=== PATIENT | male | born 1945 | race Caucasian/White ===

== ENCOUNTER 2017-10-06 15:34 | Emergency (ER) | payer MEDICARE, MEDICAID ==
[~2017-10-06] VITALS: Ht 167.6 cm; Wt 68.0 kg
[2017-10-06] MEDS ORDERED: HUMALOG 75/255 UNIT1 SUBQ (15:45)
[2017-10-06] MEDS ORDERED: LEVEMIR100 UNIT/1 SUBQ (15:45)
[2017-10-06] MEDS ORDERED: UNOBMED (15:50)
--- NOTE | 2017-10-06 16:02 | Emergency Room Report ---
History of Present Illness General Chief Complaint: General Complaint Source: Patient Present Illness HPI 72-year-old male, history of diabetes, presenting with unsteady gait. Patient states that yesterday he was feeling "wobbly", states that he went to walk, walk about half a mile, tripped over his dog leash and fell. He did not hit his head or loose consciousness. Went to the urgent care after that and ultimately went home. Patient states he woke up this morning again still feeling unsteady and his feet. Denies any headache, neck pain, blurry vision, numbness tingling. States that he is in his usual state of health with no fever chills chest pain shortness of breath. No urinary or GI complaints Patient History Past Medical History: see triage record Past Surgical History: none Pertinent Family History: none Reviewed Nursing Documentation: PMH: Agreed, PSxH: Agreed Nursing Documentation-PMH Hx Diabetes: Yes - DM2 Review of Systems All Other Systems: negative except mentioned in HPI Physical Exam Vital Signs Date Time Temp Pulse Resp B/P (MAP) Pulse Ox O2 Delivery O2 Flow Rate FiO2 10/06/17 15:38 97.9 69 16 195/67 96 Room Air Sp02 EP Interpretation: reviewed, normal General Appearance: alert, GCS 15, non-toxic, mild distress Head: normocephalic, atraumatic Eyes: bilateral eye normal inspection, bilateral eye PERRL, bilateral eye EOMI ENT: normal ENT inspection, normal pharynx, normal voice, moist mucus membranes Neck: normal inspection, full range of motion, supple Respiratory: normal inspection, lungs clear, normal breath sounds, no respiratory distress, no retraction, no wheezing, speaking full sentences, chest symmetrical Cardiovascular #1: normal inspection, regular rate, rhythm, no edema, normal capillary refill Cardiovascular #2: 2+ radial (R), 2+ radial (L) Gastrointestinal: normal inspection, non tender, soft, non-distended, no guarding Genitourinary: no CVA tenderness Musculoskeletal: normal inspection, back normal, normal range of motion, non- tender Neurologic: alert, oriented x3, responsive, microelectronics engineer III-XII nml as tested, motor strength/tone normal, sensory intact, speech normal, other - No motor weakness, strength is 5 out of 5 all 4 extremities, sensation is intact, [id number] is normal, no dysmetria. When walking the patient with slight wide based gait Psychiatric: normal inspection, judgement/insight normal, memory normal Skin: normal inspection, normal color, no rash, warm/dry, well hydrated, normal turgor Medical Decision Making Diagnostic Impression: Primary Impression: History of unsteady gait ER Course 72-year-old male, with unsteady gait for 2 days DDX: Rule out dehydration hypovolemia electrolyte disturbance Infectious Intracranial: Normal pressure hydrocephalus versus CVA Plan: Obtain labs, ua, EKG, CXR CT head ER course: Patient has been monitored during ED stay, HD stable CT head neg he has been ambulatory around ED, no difficulties I initially wanted to admit patient for unsteady gait, however patient states that he feels much better, he has been ambulating to and from the bathroom on his own without difficulty. He lives at home with his daughter and has people at home with him. I spoke to his PMD Dr. Taveras. Informed him that patient' s neurological exam is normal. CT head is normal. Lites are normal. We'll DC home with followup in his office this week Disposition: Patient is to be DC to home Please note that this Emergency Department Report was dictated using [employer] mechanic technology software, occasionally this can lead to erroneous entry secondary to interpretation by the dictation equipment. EKG Diagnostic Results EP Interpretation: Yes Rate: normal Rhythm: NSR ST Segments: No acute changes ASA given to patient: No Rhythm Strip EP Interpretation: Yes Rate: 70 Rhythm: NSR, no PVCs, no ectopy Chest X-ray CXR: Ordered: Yes 1 view Indication: Altered mental status EP interpretation: Yes Interpretation: No consolidation, no effusion, no PTX, no acute cardiopulmonary disease Impression: No acute disease Electronically signed by Zoe Garcia MD Laboratory Tests Test 10/06/17 16:47 10/06/17 17:30 White Blood Count 6.4 K/UL (4.8-10.8) Red Blood Count 4.31 M/UL (4.70-6.10) L Hemoglobin 11.3 G/DL (14.2-18.0) L Hematocrit 36.3 % (42.0-52.0) L Mean Corpuscular Volume 84 FL (80-99) Mean Corpuscular Hemoglobin 26.2 PG (27.0-31.0) L Mean Corpuscular Hemoglobin Concent 31.1 G/DL (32.0-36.0) L Red Cell Distribution Width 11.6 % (11.6-14.8) Platelet Count 153 K/UL (150-450) Mean Platelet Volume 7.3 FL (6.5-10.1) Neutrophils (%) (Auto) 66.9 % (45.0-75.0) Lymphocytes (%) (Auto) 18.5 % (20.0-45.0) L Monocytes (%) (Auto) 11.5 % (1.0-10.0) H Eosinophils (%) (Auto) 1.6 % (0.0-3.0) Basophils (%) (Auto) 1.5 % (0.0-2.0) Sodium Level 143 MMOL/L (136-145) Potassium Level 3.7 MMOL/L (3.5-5.1) Chloride Level 107 MMOL/L (98-107) Carbon Dioxide Level 26 MMOL/L (21-32) Anion Gap 10 mmol/L (5-15) Blood Urea Nitrogen 30 mg/dL (7-18) H Creatinine 1.3 MG/DL (0.55-1.30) Estimate Glomerular Filtration Rate mL/min (>60) Glucose Level 97 MG/DL (74-106) Calcium Level 7.9 MG/DL (8.5-10.1) L Total Bilirubin 0.5 MG/DL (0.2-1.0) Aspartate Amino Transferase (AST) 20 U/L (15-37) Alanine Aminotransferase (ALT) 24 U/L (12-78) Alkaline Phosphatase 90 U/L (46-116) Pro-B-Type Natriuretic Peptide 112 pg/mL (0-125) Total Protein 6.8 G/DL (6.4-8.2) Albumin 3.5 G/DL (3.4-5.0) Globulin 3.3 g/dL Albumin/Globulin Ratio 1.1 (1.0-2.7) Urine Color Joseline Urine Appearance Slightly cloudy Urine pH 5 (4.5-8.0) Urine Specific [place] 1.025 (1.005-1.035) Urine Protein 3+ (NEGATIVE) H Urine Glucose (UA) 2+ (NEGATIVE) H Urine Ketones 2+ (NEGATIVE) H Urine Occult Blood 3+ (NEGATIVE) H Urine Nitrite Negative (NEGATIVE) Urine Bilirubin Negative (NEGATIVE) Urine Ictotest Pending Urine Urobilinogen Normal MG/DL (0.0-1.0) Urine Leukocyte Esterase Negative (NEGATIVE) Urine RBC Pending Urine WBC Pending Urine Squamous Epithelial Cells Pending Urine Bacteria Pending CT/MRI/US Diagnostic Results CT/MRI/US Diagnostic Results : Imaging Test Ordered: CT Head Impression CT HEAD: Comparison 11/27/2008 No intracranial hemorrhage, mass effect or CT evidence of acute infarct The ventricles are prominent out of proportion to the sulci may represent central volume loss or NPH No midline shift The visualized paranasal sinuses, mastoid and orbits are within limits Last Vital Signs Date Time Temp Pulse Resp B/P (MAP) Pulse Ox O2 Delivery O2 Flow Rate FiO2 10/06/17 15:38 97.9 69 16 195/67 96 Room Air Disposition: HOME, SELF-CARE Condition: Improved Zoe Garcia M.D. Oct 06, 2017 16:02
[2017-10-06 16:10] VITALS: BP 195/67
[2017-10-06 16:57] VITALS: BP 171/71
[2017-10-06 16:59] LABS: BASOPHILS % (AUTO) 1.5 % (0.0-2.0); EOSINOPHILS % (AUTO) 1.6 % (0.0-3.0); HEMATOCRIT 36.3 % (42.0-52.0); HEMOGLOBIN 11.3 G/DL (14.2-18.0); LYMPHOCYTES % (AUTO) 18.5 % (20.0-45.0); MEAN CORPUSCULAR VOLUME 84 FL (80-99); MONOCYTES % (AUTO) 11.5 % (1.0-10.0); NEUTROPHILS % (AUTO) 66.9 % (45.0-75.0); PLATELET COUNT 153 K/UL (150-450); RED BLOOD COUNT 4.31 M/UL (4.70-6.10); RED CELL DISTRIBUTION WIDTH 11.6 % (11.6-14.8); WHITE BLOOD COUNT 6.4 K/UL (4.8-10.8)
[2017-10-06 17:23] LABS: ANION GAP 10 mmol/L (5-15); BLOOD UREA NITROGEN 30 mg/dL (7-18); CALCIUM 7.9 MG/DL (8.5-10.1); CARBON DIOXIDE 26 MMOL/L (21-32); CHLORIDE 107 MMOL/L (98-107); CREATININE 1.3 MG/DL (0.55-1.30); POTASSIUM 3.7 MMOL/L (3.5-5.1); SODIUM 143 MMOL/L (136-145)
[2017-10-06 17:35] LABS: ALANINE AMINOTRANSFERASE 24 U/L (12-78); ALBUMIN 3.5 G/DL (3.4-5.0); ALBUMIN/GLOBULIN RATIO 1.1 (1.0-2.7); ALKALINE PHOSPHATASE 90 U/L (46-116); ASPARTATE AMINO TRANSFERASE 20 U/L (15-37); BILIRUBIN,TOTAL 0.5 MG/DL (0.2-1.0)
[2017-10-06 18:03] LABS: APPEARANCE,URINE SLIGHTLY CLOUDY; BILIRUBIN, URINE NEGATIVE (NEGATIVE); COLOR,URINE AMBER; GLUCOSE, URINE (UA) 2+ (NEGATIVE); KETONES,URINE 2+ (NEGATIVE); LEUKOCYTE ESTERASE ,URINE NEGATIVE (NEGATIVE); NITRITE,URINE NEGATIVE (NEGATIVE); PH,URINE 5 (4.5-8.0); PROTEIN,URINE 3+ (NEGATIVE); UROBILINOGEN,URINE NORMAL MG/DL (0.0-1.0)
[2017-10-06 18:06] VITALS: BP 150/68
--- NOTE | 2017-10-07 21:47 | Diagnostic Imaging Report ---
Indication: Headache Technique: Contiguous 5 mm thick transaxial imaging of the head obtained in a Siemens Sensation [address] scanner. Soft tissue and bone windows generated. Automatic Exposure Control was utilized. Total Dose length Product (DLP): 1417.[address] Dose Index Volume (CTDIvol): 70.38 mGy Comparison: 11/27/2008 Findings: There is mild prominence of the ventricles, basal cisterns, and cerebral sulci consistent with atrophy. Mild, nonspecific, white matter hypoattenuation is noted throughout the brain consistent with chronic small vessel disease. There is no midline shift, edema, acute hemorrhage, mass effect, or abnormal extra-axial fluid collections. Bones and extra osseous soft tissues are unremarkable. Impression: No acute intracranial bleed, mass effect or edema. Mild atrophy of the brain. Nonspecific white matter hypoattenuation probably due to chronic small vessel disease. No interval change appreciated [facility] has communicated the preliminary results to the Emergency Department. Their findings are largely concordant with this report. The CT scanner at [facility] is accredited by the [employer] and the scans are performed using dose optimization techniques as appropriate to a performed exam including Automatic Exposure control.
--- NOTE | 2017-10-07 21:48 | Diagnostic Imaging Report ---
Indication: Dyspnea Comparison: 11/03/2010 A single view chest radiograph was obtained. Findings: Cardiomediastinal appearance is within normal limits for age. Pulmonary vascularity is appropriate. The diaphragmatic contour is smooth and costophrenic angles are sharp. No pleural effusions are identified. The bones are unremarkable. Impression: No acute findings
[2017-10-28 19:40] VITALS: BP 150/68
== END 2017-10-06 19:40 | disposition home or self-care (01) ==
LOC: EMR 15:59
DX: R26.81 Unsteadiness on feet (principal); R51 Headache; E11.9 Type 2 diabetes mellitus without complications; G31.9 Degenerative disease of nervous system, unspecified
CPT/HCPCS: 36415; 70450; 71045; 80053; 81003; 82962; 83880; 85025; 93005; 99284

== ENCOUNTER 2019-07-10 13:48 | Emergency (ER) | payer MEDICAID, MEDICARE ==
[~2019-07-10] VITALS: Ht 170.2 cm; Wt 72.6 kg
[~2019-07-10 13:48] MED LIST: HUMALOG 75/255 UNIT1 SUBQ; LEVEMIR100 UNIT/1 SUBQ; UNOBMED
[2019-07-10] MEDS ORDERED: ASPIR 8181 MG ORAL (14:05)
--- NOTE | 2019-07-10 14:19 | Emergency Room Report ---
History of Present Illness General Chief Complaint: Vomiting Source: Patient Present Illness HPI Disclaimer: Please note that this report is being documented using DRAGON technology. This can lead to erroneous entry secondary to incorrect interpretation by the dictating instrument. HPI: 73-year-old male with a history of diabetes, hypertension, hyperlipidemia presents for evaluation of vomiting. Symptoms began last night. He was in his usual state of health until approximately 8 PM when he began to have several episodes of nonbilious emesis. He reports possible coffee grounds but does not note any gross hematemesis, hemoptysis or kamryn coffee grounds in his vomitus. He denies abdominal pain aside from when he is in the active vomiting. Otherwise reports intermittent nausea and has not been able to hold down any solids or liquids since 8 PM last night. He denies any diarrhea but reports fatigue. Denies fevers or chills. Denies dysuria or hematuria or flank pain. Otherwise denies chest pain, shortness of breath, URI symptoms or rash. No known sick contacts. PMH: Diabetes, hypertension, hyperlipidemia PSH: Denies Allergies: Denies Social Hx: One drink daily, denies smoking, denies drugs Allergies: Coded Allergies: No Known Allergies (Unverified , 07/10/19) Nursing Documentation-PMH Past Medical History: No History, Except For Hx Diabetes: Yes Review of Systems All Other Systems: negative except mentioned in HPI Physical Exam Vital Signs Date Time Temp Pulse Resp B/P (MAP) Pulse Ox O2 Delivery O2 Flow Rate FiO2 07/10/19 13:55 97.7 82 18 131/66 (87) 95 Room Air General: Awake and alert, no acute distress HEENT: NC/AT. EOMI. PERRLA. Anicteric sclera. Dry mucous membranes Cardiovascular: RRR. S1 and S2 normal. No murmur appreciated. Capillary refill approximately 2 seconds Resp: Normal work of breathing. No cough, wheezing or crackles appreciated Abdomen: Abdomen is soft, nondistended. Nontender, no rebound, negative Ye' s, no masses Skin: Intact. No abrasions, laceration or rash over the exposed skin MSK: Normal tone and bulk. Moving all extremities. No obvious deformity. Neuro: Awake and alert. Mentating appropriately. Medical Decision Making Diagnostic Impression: Primary Impression: Vomiting Additional Impressions: Dehydration KAILYN (acute kidney injury) ER Course Is a 73-year-old male presenting for evaluation of persistent vomiting and signs of dehydration. Likely, this is a gastritis, gastroenteritis, viral syndrome though pancreatitis, cholecystitis, appendicitis, urinary tract infection, pyelonephritis or obstruction are also possible therefore less likely. Will provide IV fluids, check basic labs including a acetone level given his diabetes history. We will also provide antiemetics but he does not require pain medication at this time. There was concern over possible confusion of the patient is A&O x3, has good recall and insight into his medical condition and recent history. Laboratory Tests Test 07/10/19 15:10 07/10/19 19:00 White Blood Count 9.2 K/UL (4.8-10.8) Red Blood Count 4.99 M/UL (4.70-6.10) Hemoglobin 13.8 G/DL (14.2-18.0) L Hematocrit 41.9 % (42.0-52.0) L Mean Corpuscular Volume 84 FL (80-99) Mean Corpuscular Hemoglobin 27.5 PG (27.0-31.0) Mean Corpuscular Hemoglobin Concent 32.8 G/DL (32.0-36.0) Red Cell Distribution Width 11.9 % (11.6-14.8) Platelet Count 172 K/UL (150-450) Mean Platelet Volume 7.3 FL (6.5-10.1) Neutrophils (%) (Auto) % (45.0-75.0) Lymphocytes (%) (Auto) % (20.0-45.0) Monocytes (%) (Auto) % (1.0-10.0) Eosinophils (%) (Auto) % (0.0-3.0) Basophils (%) (Auto) % (0.0-2.0) Differential Total Cells Counted 100 Neutrophils % (Manual) 83 % (45-75) H Lymphocytes % (Manual) 6 % (20-45) L Monocytes % (Manual) 5 % (1-10) Eosinophils % (Manual) 2 % (0-3) Basophils % (Manual) 1 % (0-2) Band Neutrophils 3 % (0-8) Platelet Estimate Adequate Platelet Morphology Normal Red Blood Cell Morphology Normal Sodium Level 139 MMOL/L (136-145) 145 MMOL/L (136-145) Potassium Level 4.0 MMOL/L (3.5-5.1) 3.9 MMOL/L (3.5-5.1) Chloride Level 103 MMOL/L (98-107) 110 MMOL/L (98-107) H Carbon Dioxide Level 26 MMOL/L (21-32) 25 MMOL/L (21-32) Anion Gap 10 mmol/L (5-15) 10 mmol/L (5-15) Blood Urea Nitrogen 27 mg/dL (7-18) H 26 mg/dL (7-18) H Creatinine 1.4 MG/DL (0.55-1.30) H 1.3 MG/DL (0.55-1.30) Estimate Glomerular Filtration Rate mL/min (>60) mL/min (>60) Glucose Level 233 MG/DL (74-106) H 204 MG/DL (74-106) H Calcium Level 8.9 MG/DL (8.5-10.1) 7.4 MG/DL (8.5-10.1) L Total Bilirubin 1.4 MG/DL (0.2-1.0) H Direct Bilirubin 0.2 MG/DL (0.0-0.3) Aspartate Amino Transferase (AST) 15 U/L (15-37) Alanine Aminotransferase (ALT) 21 U/L (12-78) Alkaline Phosphatase 90 U/L (46-116) Ammonia < 10 umol/L (11-32) L Total Protein 7.7 G/DL (6.4-8.2) Albumin 3.8 G/DL (3.4-5.0) Globulin 3.9 g/dL Albumin/Globulin Ratio 1.0 (1.0-2.7) Lipase 115 U/L (73-393) Acetone Level Negative (NEGATIVE) Urine Color Yellow Urine Appearance Clear Urine pH 5 (4.5-8.0) Urine Specific [place] 1.020 (1.005-1.035) Urine Protein 3+ (NEGATIVE) H Urine Glucose (UA) 4+ (NEGATIVE) H Urine Ketones 1+ (NEGATIVE) H Urine Blood Negative (NEGATIVE) Urine Nitrite Negative (NEGATIVE) Urine Bilirubin Negative (NEGATIVE) Urine Urobilinogen Normal MG/DL (0.0-1.0) Urine Leukocyte Esterase Negative (NEGATIVE) Urine RBC 0-2 /HPF (0 - 0) H Urine WBC 2-4 /HPF (0 - 0) Urine Squamous Epithelial Cells None /LPF (NONE/OCC) Urine Bacteria Few /HPF (NONE) Reevaluation Time: 20:44 Last Vital Signs Date Time Temp Pulse Resp B/P (MAP) Pulse Ox O2 Delivery O2 Flow Rate FiO2 07/10/19 13:55 97.7 82 18 131/66 (87) 95 Room Air Status: improved Reevaluation Impression Patient had a mild KAILYN with a creatinine of 1.4 and is elevated B UN consistent with dehydration likely from the losses from vomiting. The remainder of his labs were largely within normal limits and the patient was well-appearing. No No white count, no urinary tract infection. The patient has not been vomiting while in the emergency department and after 2 L of saline the patient's creatinine is improving. He is tolerating oral intake and is electing to follow -up with his PMD as an outpatient rather than admission. He will receive a third liter prior to departure. He is well-appearing, not infectious, stable for outpatient follow-up with his PMD. His family is present and we have discussed need for close follow-up and rechecking of his creatinine function in a few days. We also discussed reasons to return to the emergency department and he will be discharged home with Zofran for symptomatic relief. Patient understands and agrees with the treatment plan will be discharged home. Disposition: HOME, SELF-CARE Condition: Improved Scripts Ondansetron Odt* (ZOFRAN ODT*) 4 Mg Tab.rapdis 4 MG BC EVERY 6 HOURS PRN for Nausea & Vomiting, #20 TAB 0 Refills Prov: John Oconnor MD 07/10/19 John Oconnor MD Jul 10, 2019 14:19
[2019-07-10 15:31] LABS: HEMATOCRIT 41.9 % (42.0-52.0); HEMOGLOBIN 13.8 G/DL (14.2-18.0); MEAN CORPUSCULAR VOLUME 84 FL (80-99); PLATELET COUNT 172 K/UL (150-450); RED BLOOD COUNT 4.99 M/UL (4.70-6.10); RED CELL DISTRIBUTION WIDTH 11.9 % (11.6-14.8); WHITE BLOOD COUNT 9.2 K/UL (4.8-10.8)
[2019-07-10 15:36] LABS: ANION GAP 10 mmol/L (5-15); BLOOD UREA NITROGEN 27 mg/dL (7-18); CALCIUM 8.9 MG/DL (8.5-10.1); CARBON DIOXIDE 26 MMOL/L (21-32); CHLORIDE 103 MMOL/L (98-107); CREATININE 1.4 MG/DL (0.55-1.30); SODIUM 139 MMOL/L (136-145)
[2019-07-10 15:38] LABS: AMMONIA < 10 umol/L (11-32)
[2019-07-10 15:46] LABS: ALANINE AMINOTRANSFERASE 21 U/L (12-78); ALBUMIN 3.8 G/DL (3.4-5.0); ALKALINE PHOSPHATASE 90 U/L (46-116); ASPARTATE AMINO TRANSFERASE 15 U/L (15-37); BILIRUBIN,TOTAL 1.4 MG/DL (0.2-1.0)
[2019-07-10 15:51] LABS: BILIRUBIN,DIRECT 0.2 MG/DL (0.0-0.3)
[2019-07-10 16:40] VITALS: BP 133/65
[2019-07-10] MEDS ORDERED: ONDANSETRON ODT4 MG BC (17:48)
[2019-07-10 19:43] LABS: ANION GAP 10 mmol/L (5-15); BLOOD UREA NITROGEN 26 mg/dL (7-18); CALCIUM 7.4 MG/DL (8.5-10.1); CARBON DIOXIDE 25 MMOL/L (21-32); CHLORIDE 110 MMOL/L (98-107); CREATININE 1.3 MG/DL (0.55-1.30); POTASSIUM 3.9 MMOL/L (3.5-5.1); SODIUM 145 MMOL/L (136-145)
[2019-07-10 19:46] VITALS: BP 118/65
--- NOTE | 2019-07-10 19:47 | NUR ---
ED Nurse Note: pt walked in with son-in-law from home . pt c/o n/v for a few days. sherly nassar done blood and urine sent IVF infused pt medicated . NAD. Pt awake alert speaking in full sentences BNP redrawn and sent.
[2019-07-10 19:51] LABS: APPEARANCE,URINE CLEAR; BILIRUBIN, URINE NEGATIVE (NEGATIVE); GLUCOSE, URINE (UA) 4+ (NEGATIVE); KETONES,URINE 1+ (NEGATIVE); LEUKOCYTE ESTERASE ,URINE NEGATIVE (NEGATIVE); NITRITE,URINE NEGATIVE (NEGATIVE); PH,URINE 5 (4.5-8.0); PROTEIN,URINE 3+ (NEGATIVE); UROBILINOGEN,URINE NORMAL MG/DL (0.0-1.0)
[2019-07-10 19:53] LABS: COLOR,URINE YELLOW
[2019-07-10 20:17] VITALS: BP 120/65
--- NOTE | 2019-07-10 20:21 | NUR ---
ER DISCHARGE NOTE: Patient is cleared to be discharged per ERMD, pt is aox4, on room air, with stable vital signs. pt was given dc and prescription instructions, pt was able to verbalize understanding, pt id band and iv site removed without complications. pt is able to ambulate with steady gait. pt took all belongings.
== END 2019-07-10 20:22 | disposition home or self-care (01) ==
LOC: EMR 14:33
DX: N17.9 Acute kidney failure, unspecified (principal); E86.0 Dehydration; R11.10 Vomiting, unspecified; E11.9 Type 2 diabetes mellitus without complications; I10 Essential (primary) hypertension; E78.5 Hyperlipidemia, unspecified
CPT/HCPCS: 36415; 80048; 80053; 81003; 82009; 82140; 82248; 83690; 85007; 85025; 96361; 96374; 96375; 99284; J2405; S0028; J7030

== ENCOUNTER 2019-07-15 09:01 | Inpatient (IN) | payer MEDICARE ==
[~2019-07-15] VITALS: Ht 170.2 cm; Wt 68.0 kg
[~2019-07-15 09:01] MED LIST changes: +ASPIR 8181 MG ORAL; +ONDANSETRON ODT4 MG BC
--- NOTE | 2019-07-15 09:15 | NUR ---
ED Nurse Note: Patient walked into ED accomapanied by daughter c/o vomiting and diarrhea that started this morning, states that the content of his vomit was clear accompanied by clear diarrhea, rates no pain. patient is alert and oriented x4. Blood sugar of 182 at time of arrival, states that "this is low for me". patient was seen here saturday for the same reason. patient placed on a monitor car operator, will continue to monitor
--- NOTE | 2019-07-15 09:15 | NUR ---
Note joann in EDM - 07/15/19 at 0925 by FRANCISCO JAVIER ED Nurse Note: Patient walked into ED accomapanied by daughter c/o vomiting and diarrhea that started this morning, states that the content of his vomit was clear accompanied by clear diarrhea, rates his pain as a 8/10 constant pain located on his lower abdomen. patient is alert and oriented x4. Blood sugar of 182 at time of arrival, states that "this is low for me". patient was seen here ty for the same reason. patient placed on a kiln firer helper, will continue to monitor
[2019-07-15 09:17] VITALS: BP 128/73
--- NOTE | 2019-07-15 09:20 | NUR ---
ED Nurse Note: IV started in right AC gauge, labs sent down, still awaiting for urine
[2019-07-15] MEDS ORDERED: Isovue-300 100ml vial INJ PRN (09:30)
[2019-07-15 10:22] LABS: BASOPHILS % (AUTO) 0.5 % (0.0-2.0); EOSINOPHILS % (AUTO) 0.6 % (0.0-3.0); HEMATOCRIT 41.8 % (42.0-52.0); HEMOGLOBIN 14.4 G/DL (14.2-18.0); LYMPHOCYTES % (AUTO) 8.3 % (20.0-45.0); MEAN CORPUSCULAR VOLUME 81 FL (80-99); MONOCYTES % (AUTO) 12.8 % (1.0-10.0); NEUTROPHILS % (AUTO) 77.8 % (45.0-75.0); PLATELET COUNT 184 K/UL (150-450); RED BLOOD COUNT 5.14 M/UL (4.70-6.10); RED CELL DISTRIBUTION WIDTH 11.8 % (11.6-14.8); WHITE BLOOD COUNT 11.8 K/UL (4.8-10.8)
[2019-07-15 10:23] LABS: ANION GAP 9 mmol/L (5-15); BLOOD UREA NITROGEN 25 mg/dL (7-18); CALCIUM 8.8 MG/DL (8.5-10.1); CARBON DIOXIDE 26 MMOL/L (21-32); CHLORIDE 105 MMOL/L (98-107); CREATININE 1.4 MG/DL (0.55-1.30); POTASSIUM 3.5 MMOL/L (3.5-5.1); SODIUM 140 MMOL/L (136-145)
--- NOTE | 2019-07-15 10:29 | Emergency Room Report ---
History of Present Illness General Chief Complaint: Vomiting Source: Medical Record Present Illness HPI 73-year-old male presents ED for evaluation. Complaining of abdominal pain with nausea vomiting and diarrhea. Pain is dull, 8 out of 10, nonradiating. Notes multiple episodes of watery loose stools. Denies fevers or chills. Denies chest pain or shortness of breath. Was seen here on 07/10 for similar presentation. Was treated and subsequently discharged. Patient states he was feeling better for a few days and then symptoms started up again yesterday. Denies recent travel or recent antibiotic use. No other aggravating relieving factors. Denies any other associated symptoms Allergies: Coded Allergies: No Known Allergies (Unverified , 07/10/19) Patient History Past Medical History: DM Past Surgical History: none Pertinent Family History: none Social History: Denies: smoking, alcohol use, drug use Immunizations: UTD Reviewed Nursing Documentation: PMH: Agreed; PSxH: Agreed Nursing Documentation-PMH Past Medical History: No History, Except For Hx Diabetes: Yes Review of Systems All Other Systems: negative except mentioned in HPI Physical Exam Vital Signs Date Time Temp Pulse Resp B/P (MAP) Pulse Ox O2 Delivery O2 Flow Rate FiO2 07/15/19 09:15 73 16 07/15/19 09:17 96.9 128/73 100 Room Air Sp02 EP Interpretation: reviewed, normal General Appearance: no apparent distress, alert, GCS 15, non-toxic Head: normocephalic, atraumatic Eyes: bilateral eye normal inspection, bilateral eye PERRL ENT: hearing grossly normal, normal pharynx, no angioedema, normal voice Neck: full range of motion, supple/symm/no masses Respiratory: chest non-tender, lungs clear, normal breath sounds, speaking full sentences Cardiovascular #1: regular rate, rhythm, no edema Cardiovascular #2: 2+ carotid (R), 2+ carotid (L), 2+ radial (R), 2+ radial (L) , 2+ dorsalis pedis (R), 2+ dorsalis pedis (L) Gastrointestinal: normal bowel sounds, soft, non-distended, no guarding, no rebound, tenderness Rectal: deferred Genitourinary: normal inspection, no CVA tenderness Musculoskeletal: back normal, gait/station normal, normal range of motion, non- tender Neurologic: alert, oriented x3, responsive, motor strength/tone normal, sensory intact, speech normal Psychiatric: judgement/insight normal, memory normal, mood/affect normal, no suicidal/homicidal ideation Reflexes: 3+ bicep (R), 3+ bicep (L), 3+ tricep (R), 3+ tricep (L), 3+ knee (R) , 3+ knee (L) Lymphatic: no adenopathy Medical Decision Making Diagnostic Impression: Primary Impression: Colitis Additional Impressions: Dehydration Vomiting Qualified Codes: R11.2 - Nausea with vomiting, unspecified ER Course Hospital Course 73 yo M presents with vomiting and diarrhea. Differentialgastritis, gastroenteritis, dehydration Clinical course Patient placed on stretcher. After initial history and physical I ordered labs , IV fluids, CT, Pepcid and Zofran Labs - no leukocytosis, Hb/Hct stable. mild renal insufficiency. CT A/P - colitis noted Discussed findings with patient and daughter. She was seen here on 07/10 for similar presentation. Daughter tells me that patient did not comply with the prescriptions he continued to have symptoms. She is concerned that patient has some cognitive decline and is not able to follow directions appropriately. Patient continues to have pain and vomiting Stool culture, C-diff collected. Given Cipro and Flagyl here in ED. Will require admission Case discussed with Dr. Bateman and he agreed to accept the patient to his service for further care and support I feel this is a highly complex case requiring extensive working including EKG/ Rhythm strip, Xray/CT/US, Blood/urine lab work, repeat exams while in ED, and administration of strong opiates/narcotics for pain control, admission to hospital or close patient follow up. Diagnosis - colitis, dehyration, vomiting Patient admitted to hospital in serious condition Labs Test 07/15/19 09:30 07/15/19 10:43 07/15/19 12:09 White Blood Count 11.8 K/UL (4.8-10.8) Red Blood Count 5.14 M/UL (4.70-6.10) Hemoglobin 14.4 G/DL (14.2-18.0) Hematocrit 41.8 % (42.0-52.0) Mean Corpuscular Volume 81 FL (80-99) Mean Corpuscular Hemoglobin 27.9 PG (27.0-31.0) Mean Corpuscular Hemoglobin Concent 34.3 G/DL (32.0-36.0) Red Cell Distribution Width 11.8 % (11.6-14.8) Platelet Count 184 K/UL (150-450) Mean Platelet Volume 7.2 FL (6.5-10.1) Neutrophils (%) (Auto) 77.8 % (45.0-75.0) Lymphocytes (%) (Auto) 8.3 % (20.0-45.0) Monocytes (%) (Auto) 12.8 % (1.0-10.0) Eosinophils (%) (Auto) 0.6 % (0.0-3.0) Basophils (%) (Auto) 0.5 % (0.0-2.0) Sodium Level 140 MMOL/L (136-145) Potassium Level 3.5 MMOL/L (3.5-5.1) Chloride Level 105 MMOL/L (98-107) Carbon Dioxide Level 26 MMOL/L (21-32) Anion Gap 9 mmol/L (5-15) Blood Urea Nitrogen 25 mg/dL (7-18) Creatinine 1.4 MG/DL (0.55-1.30) Estimat Glomerular Filtration Rate mL/min (>60) Glucose Level 198 MG/DL (74-106) Calcium Level 8.8 MG/DL (8.5-10.1) Total Bilirubin 1.1 MG/DL (0.2-1.0) Direct Bilirubin 0.2 MG/DL (0.0-0.3) Aspartate Amino Transf (AST/SGOT) 15 U/L (15-37) Alanine Aminotransferase (ALT/SGPT) 20 U/L (12-78) Alkaline Phosphatase 95 U/L (46-116) Total Protein 7.4 G/DL (6.4-8.2) Albumin 3.5 G/DL (3.4-5.0) Globulin 3.9 g/dL Albumin/Globulin Ratio 0.9 (1.0-2.7) Lipase 158 U/L (73-393) Acetone Level Positive-small (NEGATIVE) Urine Color Yellow Urine Appearance Cloudy Urine pH 5 (4.5-8.0) Urine Specific [place] 1.030 (1.005-1.035) Urine Protein 3+ (NEGATIVE) Urine Glucose (UA) 3+ (NEGATIVE) Urine Ketones 3+ (NEGATIVE) Urine Blood 1+ (NEGATIVE) Urine Nitrite Negative (NEGATIVE) Urine Bilirubin Negative (NEGATIVE) Urine Urobilinogen Normal MG/DL (0.0-1.0) Urine Leukocyte Esterase Negative (NEGATIVE) Urine RBC 2-4 /HPF (0 - 0) Urine WBC 0-2 /HPF (0 - 0) Urine Squamous Epithelial Cells Occasional /LPF Urine Bacteria Few /HPF (NONE) Urine Hyaline Casts 0-2 /LPF (NONE) Urine Granular Casts 0-2 /LPF (NONE) Urine Mucus Moderate /LPF (NONE/OCC) Lactic Acid Level 1.10 mmol/L (0.4-2.0) CT/MRI/US Diagnostic Results CT/MRI/US Diagnostic Results : Imaging Test Ordered: CT A/P Impression Comparison: 05/29/2009 Findings: Lack of enteric contrast limits assessment of the GI tract. There is colonic diverticulosis. No evidence of diverticulitis. The appendix is normal. The colon is diffusely fluid-filled, nondistended. Small bowel is nondistended, but is fluid-filled, demonstrates prominent mural enhancement. The distal esophagus and stomach are unremarkable. The duodenum demonstrates mild wall thickening and mural enhancement. The liver demonstrates scattered subcentimeter low-attenuation lesions which are too small to characterize. The gallbladder, bile ducts, pancreas, spleen, adrenals are unremarkable. The kidneys demonstrate contour lobulations bilaterally, likely indicating areas of scarring. Both kidneys demonstrate subcentimeter low- attenuation lesions which are too small to characterize. There is a 5 mm calculus in the left upper pole collecting system and a 2 mm calculus in the left lower pole collecting system. No ureteral calculi, hydronephrosis, or hydroureter demonstrated. There is nonspecific bilateral perinephric fat stranding. No retroperitoneal or mesenteric mass or adenopathy. No pelvic mass or adenopathy. The prostate is somewhat prominent. The included lung bases demonstrate dependent pulmonary atelectatic changes. The bones demonstrate minimal degenerative spondylosis changes. Last Vital Signs Date Time Temp Pulse Resp B/P (MAP) Pulse Ox O2 Delivery O2 Flow Rate FiO2 07/15/19 09:17 96.9 73 10 128/73 100 Room Air Status: improved Disposition: ADMITTED INPATIENT Condition: Serious Referrals: BRENDA REGAN M.D. (PCP) Den Johnson MD Jul 15, 2019 10:29
[2019-07-15 10:36] LABS: ALANINE AMINOTRANSFERASE 20 U/L (12-78); ALBUMIN 3.5 G/DL (3.4-5.0); ALBUMIN/GLOBULIN RATIO 0.9 (1.0-2.7); ALKALINE PHOSPHATASE 95 U/L (46-116); ASPARTATE AMINO TRANSFERASE 15 U/L (15-37); BILIRUBIN,TOTAL 1.1 MG/DL (0.2-1.0)
[2019-07-15 10:43] LABS: BILIRUBIN,DIRECT 0.2 MG/DL (0.0-0.3)
[2019-07-15 10:58] LABS: APPEARANCE,URINE CLOUDY; BILIRUBIN, URINE NEGATIVE (NEGATIVE); GLUCOSE, URINE (UA) 3+ (NEGATIVE); KETONES,URINE 3+ (NEGATIVE); LEUKOCYTE ESTERASE ,URINE NEGATIVE (NEGATIVE); NITRITE,URINE NEGATIVE (NEGATIVE); PH,URINE 5 (4.5-8.0); PROTEIN,URINE 3+ (NEGATIVE); UROBILINOGEN,URINE NORMAL MG/DL (0.0-1.0)
[2019-07-15 11:08] LABS: COLOR,URINE YELLOW
--- NOTE | 2019-07-15 11:30 | Diagnostic Imaging Report ---
Clinical Indication: Abdominal pain, nausea, vomiting, diarrhea Technique: No oral contrast utilized, per emergency room physician request IV administration nonionic contrast. Venous phase spiral acquisition obtained through the abdomen and pelvis. Multiplanar reconstructions were generated. Total dose length product 964 mGycm. CTDIvol(s) 15 mGy. Dose reduction achieved using automated exposure control Comparison: 05/29/2009 Findings: Lack of enteric contrast limits assessment of the GI tract. There is colonic diverticulosis. No evidence of diverticulitis. The appendix is normal. The colon is diffusely fluid-filled, nondistended. Small bowel is nondistended, but is fluid-filled, demonstrates prominent mural enhancement. The distal esophagus and stomach are unremarkable. The duodenum demonstrates mild wall thickening and mural enhancement. The liver demonstrates scattered subcentimeter low-attenuation lesions which are too small to characterize. The gallbladder, bile ducts, pancreas, spleen, adrenals are unremarkable. The kidneys demonstrate contour lobulations bilaterally, likely indicating areas of scarring. Both kidneys demonstrate subcentimeter low-attenuation lesions which are too small to characterize. There is a 5 mm calculus in the left upper pole collecting system and a 2 mm calculus in the left lower pole collecting system. No ureteral calculi, hydronephrosis, or hydroureter demonstrated. There is nonspecific bilateral perinephric fat stranding. No retroperitoneal or mesenteric mass or adenopathy. No pelvic mass or adenopathy. The prostate is somewhat prominent. The included lung bases demonstrate dependent pulmonary atelectatic changes. The bones demonstrate minimal degenerative spondylosis changes. Impression: Limited assessment of the GI tract, due to lack of enteric contrast administration Fluid-filled colon and small bowel, with somewhat prominent small bowel and duodenal mural enhancement, may indicate enteritis/diarrheal illness Colonic diverticulosis. No evidence of diverticulitis Nonobstructive left intrarenal calculi Nonspecific bilateral perinephric fat stranding Subcentimeter low-attenuation hepatic and renal lesions, too small to characterize, most likely benign cysts. No further follow-up necessary Prominent prostate Other findings as noted, including dependent pulmonary atelectatic changes, degenerative spondylosis, evidence of chronic renal cortical scarring The CT scanner at [facility] is accredited by the [employer] and the scans are performed using protocols designed to limit radiation exposure to as low as reasonably achievable to attain images of sufficient resolution adequate for diagnostic evaluation.
--- NOTE | 2019-07-15 12:49 | NUR ---
ED Nurse Note: Blood culture x2 and LA collected and sent to lab. Still waiting for stool. IV ABX running well.
--- NOTE | 2019-07-15 13:59 | History & Physical ---
History and Physical History & Physicial History and Physical HPI Patient is a 73 year old man with history of Diabetes Mellitus, admitted with Colitis, complains of abdominal pain, nausea vomiting and diarrhea. Has had multiple episodes of watery loose stools. Denies fevers or chills. Denies chest pain or shortness of breath. Was seen at the ED on 07/10 for similar presentation. Was treated and subsequently discharged. Patient states he was feeling better for a few days and then symptoms started up again yesterday. Denies recent travel or recent antibiotic use. No other aggravating relieving factors. Denies any other associated symptoms Allergies: No Known Allergies Past Medical History: Diabetes Mellitus Past Surgical History: none Social History: Denies: smoking, alcohol use, drug use Family History Negative All Other Systems: negative except mentioned in HPI Physical Exam Vital Signs Noted Date Time Temp Pulse Resp B/P (MAP) Pulse Ox O2 Delivery O2 Flow Rate FiO2 07/15/19 09:15 73 16 07/15/19 09:17 96.9 128/73 100 Room Air General Appearance: no apparent distress, alert, GCS 15, non-toxic Head: normocephalic, atraumatic Eyes: bilateral eye normal inspection, bilateral eye PERRL ENT: hearing grossly normal, moist mm, No LN Neck: full range of motion, supple/symm/no masses Respiratory: chest non-tender, lungs clear, normal breath sounds, speaking full sentences Cardiovascular: regular rate, rhythm, HS1 and HS2 normal, no edema Gastrointestinal: normal bowel sounds, soft, non-distended, no guarding, no rebound or tenderness Genitourinary: normal inspection, no CVA tenderness Musculoskeletal: back normal, gait/station normal, normal range of motion, non- tender Neurologic: alert, oriented x3, responsive, normal strength, no seizures Last Vital Signs Date Time Temp Pulse Resp B/P (MAP) Pulse Ox O2 Delivery O2 Flow Rate FiO2 07/15/19 09:17 96.9 73 10 128/73 100 Room Air Impression: Possible Colitis Nausea, Vomiting, Diarrhea Diabetes Mellitis Plan: Admit Inpatient IVF IV Ciprofloxacin and Flagyl PPX Protonix Stool studies [employer] medications Monitor labs O2 PRN ISS CT Abdomen: Possible colitis, no diverticulitis, borderline bowel loops Labs: Noted Time of note does not reflect time patient seen Ulisses Spivey MD Jul 15, 2019 13:59
[2019-07-15 14:00] VITALS: BP 110/67
[2019-07-15] MEDS ORDERED: Hydromorphone 0.5mg/0.5ml inj IVP PRN (14:00)
[2019-07-15] MEDS ORDERED: HYDROcodone/Acetamin 5/325 tab ORAL PRN (14:32)
[2019-07-15] MEDS: NovoLOG Insulin Flexpen SUBQ SCH ×2 (16:41→20:57)
--- NOTE | 2019-07-15 19:47 | NUR ---
HAND-OFF: Report given to Ilana CASTRO.
--- NOTE | 2019-07-15 19:48 | NUR ---
NURSE NOTES: Received patient in no apparent distress. A&OX4. IV site patent and intact. Daughter and visitor at bedside. Bed in lowest position. Call light within reach. Will continue to monitor.
[2019-07-15 20:00] VITALS: BP 135/64
--- NOTE | 2019-07-15 20:11 | NUR ---
NURSE NOTES: Call and left message to Dr. Bateman regarding patient asking sleeping medication. Waiting a call back.
--- NOTE | 2019-07-15 20:36 | NUR ---
NURSE NOTES: Obtained order of Ambien 5mg qhs prn from Dr. Costa.
[2019-07-15] MEDS ORDERED: Zolpidem 5mg tab ORAL PRN (20:45)
[2019-07-15] MEDS: Heparin 5000 units/ml inj SUBQ SCH (20:51)
--- NOTE | 2019-07-15 21:00 | NUR ---
NURSE NOTES: Patient complaining right AC IV. Patient says "it bothers me when I bend my arm, machine is keep beeping". New IV inserted on right forearm G22, patent and intact.
--- NOTE | 2019-07-15 23:18 | NUR ---
NURSE NOTES: Noticed that IV was removed by patient. Nurse ask a reason. Patient says "It bothers and locked me". Explained importance to get IV antibiotic medication. Patient refused insert new IV. Patient says "I don't need it, get out! Why you still here? out! out! out!"
[2019-07-16] VITALS: BP 130/66
[2019-07-16 04:00] VITALS: BP 119/61
--- NOTE | 2019-07-16 06:05 | NUR ---
NURSE NOTES: Nurse explained importance to get antibiotic medication but patient still refused insert new IV. Patient says "No, No, I'm done"
[2019-07-16] MEDS: NovoLOG Insulin Flexpen SUBQ SCH (06:08)
--- NOTE | 2019-07-16 06:11 | NUR ---
NURSE NOTES: Patient was naked, nurse asked change new gown, patient refused. Patient says "go, go, go!"
--- NOTE | 2019-07-16 06:23 | NUR ---
NURSE NOTES: Notified Dr. Bateman regarding refusing IV insertion and medication. Obtained order of Consult with Dr. Martinez.
--- NOTE | 2019-07-16 06:50 | NUR ---
NURSE NOTES: Notified Son(William Hugo) regarding refusing insert new IV and antibiotic medication.
--- NOTE | 2019-07-16 07:00 | NUR ---
NURSE NOTES: Son spoke with the patient on the phone but still refused.
[2019-07-16 07:06] LABS: BASOPHILS % (AUTO) 1.2 % (0.0-2.0); EOSINOPHILS % (AUTO) 2.3 % (0.0-3.0); HEMATOCRIT 35.3 % (42.0-52.0); LYMPHOCYTES % (AUTO) 23.5 % (20.0-45.0); MEAN CORPUSCULAR VOLUME 81 FL (80-99); MONOCYTES % (AUTO) 17.5 % (1.0-10.0); NEUTROPHILS % (AUTO) 55.4 % (45.0-75.0); PLATELET COUNT 161 K/UL (150-450); RED BLOOD COUNT 4.36 M/UL (4.70-6.10); RED CELL DISTRIBUTION WIDTH 10.5 % (11.6-14.8); WHITE BLOOD COUNT 4.5 K/UL (4.8-10.8)
[2019-07-16 07:11] LABS: ALANINE AMINOTRANSFERASE 15 U/L (12-78); ALBUMIN 2.8 G/DL (3.4-5.0); ALBUMIN/GLOBULIN RATIO 0.9 (1.0-2.7); ALKALINE PHOSPHATASE 68 U/L (46-116); ANION GAP 10 mmol/L (5-15); ASPARTATE AMINO TRANSFERASE 11 U/L (15-37); BILIRUBIN,TOTAL 0.7 MG/DL (0.2-1.0); BLOOD UREA NITROGEN 24 mg/dL (7-18); CALCIUM 7.8 MG/DL (8.5-10.1); CARBON DIOXIDE 22 MMOL/L (21-32); CHLORIDE 110 MMOL/L (98-107); CREATININE 1.3 MG/DL (0.55-1.30); POTASSIUM 3.3 MMOL/L (3.5-5.1); SODIUM 142 MMOL/L (136-145)
--- NOTE | 2019-07-16 07:46 | NUR ---
HAND-OFF: Report given to Tova CASTRO.
--- NOTE | 2019-07-16 07:47 | NUR ---
nurse notes received patient sitting on the chair, patient aaox4, no sign of distress, RA, no IV access tried to re insert new line patient refused, patient stated he wants to go home waiting for PMD to come, plan of care was discussed needs reinforcement rose mary kern
[2019-07-16 08:05] VITALS: BP 130/57
[2019-07-16] MEDS: Heparin 5000 units/ml inj SUBQ SCH (08:14)
[2019-07-16] MEDS ORDERED: Aspirin Baby 81mg ORAL SCH (09:00)
[2019-07-16] MEDS ORDERED: Pantoprazole Inj IVP SCH (09:00)
--- NOTE | 2019-07-16 09:46 | NUR ---
nurse notes Dr vasquez at bedside, spoke to patient , but patient verbalized he wants to go home soon [phone] patient called stated wants to sign AMA, AMA Form signed by patient, family at bedside, [phone] Relief charge nurse aware patient signed AMA, notified cashiers supervisor Kell, [phone] Bateman office left message to personal secretary, 1000 patient left the Unit in stable condition with all belongings taken accompanied by son in law, son in law provided transportation rose mary kern
--- NOTE | 2019-07-16 16:31 | Consultation ---
DATE OF CONSULTATION: 07/16/2019 GASTROENTEROLOGY CONSULTATION CONSULTING PHYSICIAN: Presley Shearer M.D. REFERRING PHYSICIAN: Blu Bateman M.D. CHIEF COMPLAINT: I was asked to see this patient by Dr. Blu Bateman for evaluation of gastrointestinal symptoms and colitis. HISTORY OF PRESENT ILLNESS: The patient is a 73-year-old white man with a history of diabetes who is admitted with nausea, vomiting, diarrhea. The patient states that symptoms are acute, also recurrent. The patient had symptoms for about a day or so and came to emergency room where he was admitted for dehydration. He has similar presentation on 07/10/2019 when he came to the emergency room and was discharged. At that time, he was felt to likely have a case of gastroenteritis. On this admission, however, CT scan was done, showing fluid-filled colon and small bowel. There is also colonic diverticulosis, but no diverticulitis. The patient now wants to leave against medical advice. He was advised strongly that his illness cause some diarrhea and dehydration, and it was recurrent. Infectious pathologies such as a bacterial or Clostridium difficile infections were often ruled out. However, the patient is adamant that he wants to leave today and he will follow up with his primary physician. The patient has not had any recent antibiotics. PAST MEDICAL HISTORY: History of diabetes. MEDICATIONS: See the chart for details. ALLERGIES: None. FAMILY HISTORY: Negative. SOCIAL HISTORY: The patient does not smoke or drink alcohol. PHYSICAL EXAMINATION: GENERAL: This is a well-developed, well-nourished elderly man, seen with family at bedside, in no distress. HEENT: Normocephalic, atraumatic. Sclerae anicteric. Oropharynx clear. NECK: Supple. CHEST: Clear to auscultation. CARDIOVASCULAR: Revealed a regular rate. ABDOMEN: Soft, nontender. Good bowel sounds. There is no organomegaly. EXTREMITIES: Revealed no edema. NEUROLOGIC: Nonfocal. LABORATORY DATA: Noted. ASSESSMENT: This patient presents with recurrent bout of nausea, vomiting, diarrhea with resultant dehydration, requiring admission. He appears to be improved, but workup is not complete. I strongly urged the patient at least to do his stool tests prior to discharge. I also strongly encouraged him to follow up with his primary physician as an outpatient. Should the patient's symptoms recurrent, then further workup including colonoscopy will be necessary. RECOMMENDATIONS: Per above discussion and orders written in the chart. Thank you for asking me to participate in the care of this patient. Presley Shearer M.D. DR: REGINA JOB#: [id number] CC:
--- NOTE | 2019-07-16 17:12 | General Progress Note ---
Assessment/Plan Assessment/Plan: Impression: Possible Colitis Nausea, Vomiting, Diarrhea Diabetes Mellitus Plan: GI evaluation IV Ciprofloxacin and Flagyl PPX Protonix Stool studies patient seen earlier called that he now signed out AMA patient fully alert and able to make his own decision impression, plan, and exam edited and reviewed in detail care discussed with RN Subjective Allergies: Coded Allergies: No Known Allergies (Unverified , 07/10/19) Subjective care noted findings reviewed Objective Last 24 Hour Vital Signs Date Time Temp Pulse Resp B/P (MAP) Pulse Ox O2 Delivery O2 Flow Rate FiO2 07/16/19 08:31 Room Air 07/16/19 08:05 98.1 78 18 130/57 (81) 98 07/16/19 04:00 98.1 73 17 119/61 (80) 97 07/16/19 00:00 97.6 79 18 130/66 (87) 97 83 07/15/19 21:00 Room Air 07/15/19 20:00 97.9 90 18 135/64 (87) 98 79 Intake and Output 07/15/19 07/16/19 19:00 07:00 Intake Total 1450 ml 440 ml Output Total 50 ml Balance 1400 ml 440 ml Intake Oral 450 ml 240 ml IV Total 1000 ml 200 ml Output Urine Total 50 ml # Voids 4 3 # Bowel Movements 5 Laboratory Tests 07/16/19 06:02: White Blood Count 4.5#L, Red Blood Count 4.36L, Hemoglobin 12.0L, Hematocrit 35.3L, Mean Corpuscular Volume 81, Mean Corpuscular Hemoglobin 27.6, Mean Corpuscular Hemoglobin Concent 34.1, Red Cell Distribution Width 10.5L, Platelet Count 161, Mean Platelet Volume 7.2, Neutrophils (%) (Auto) 55.4, Lymphocytes (%) (Auto) 23.5, Monocytes (%) (Auto) 17.5H, Eosinophils (%) (Auto) 2.3, Basophils (%) (Auto) 1.2, Sodium Level 142, Potassium Level 3.3L, Chloride Level 110H, Carbon Dioxide Level 22, Anion Gap 10, Blood Urea Nitrogen 24H, Creatinine 1.3, Estimat Glomerular Filtration Rate , Glucose Level 177H, Calcium Level 7.8L, Total Bilirubin 0.7, Aspartate Amino Transf (AST/SGOT) 11L, Alanine Aminotransferase (ALT/SGPT) 15, Alkaline Phosphatase 68, Total Protein 6.0L, Albumin 2.8L, Globulin 3.2, Albumin/Globulin Ratio 0.9L Height (Feet): 5 Height (Inches): 7.00 Weight (Pounds): 150 Objective WDWN NAD clear breath sounds bilaterally without rhonchi or wheeze [id number] without MRG NABS nontender no HSM no CCE nonfocal abdomen soft Blu Bateman MD Jul 16, 2019 17:12
--- NOTE | 2019-07-17 16:56 | NUR ---
CASE MANAGEMENT:REVIEW 07/16/19 73 YR OLD MALE PRESENETED TO ER CC: VOMITING AND DIARRHEA SI: COLITIS. DEHYDRATION 96.9 73 10 128/73 100% ON RA WBC+11.8 BUN+25 CR+1.4 IS: IV ZOFRAN IV PEPCID 1L NS BOLUS IV CIPRO IV FLAGYL BLOOD CX CT ABD/PELVIS : TO MED/SURG 07/17/19 SIGNED OUT AMA
--- NOTE | 2019-07-18 16:27 | Discharge Summary ---
Discharge Summary Discharge Summary _ DATE OF ADMISSION: 07/15/2019 DATE OF DISCHARGE: 07/16/2019 Patient left AGAINST MEDICAL ADVICE REASON FOR ADMISSION: 73 years old male with past medical history of diabetes mellitus, presented to emergency room for evaluation due to abdominal pain with nausea , vomiting and diarrhea. Pain described as nonradiating , dull, 8 out of 10. Patient reported multiple episodes of watery loose stool. He denied fever or chills. He denied chest pain or shortness of breath. Patient was seen on July 10 in the ED for similar presentation. At that time he was treated and subsequently discharged after improvement in symptoms. He felt better for few days , and then the symptoms started again. He denied recent travel or recent antibiotic use. Upon evaluation vital signs were stable. Laboratory work-up revealed mild leukocytosis WBC 11.8, stable hemoglobin and hematocrit. Stable electrolytes. BUN 25, creatinine 1.4 Stable LFT and lipase. Lactic acid 1.1. Urinalysis revealed no evidence of urinary tract infection. CT of the abdomen and pelvis revealed fluid-filled colon and small bowel, with somewhat prominent small bowel and duodenal mural enhancement , possibly indicative of enteritis/diarrheal illness. Colonic diverticulosis without evidence of diverticulitis. Nonobstructive left intrarenal calculi. Nonspecific bilateral perinephric fat stranding. Prominent prostate. In emergency department patient started on the IV fluids , was treated with Pepcid and Zofran and received empiric Cipro and Flagyl. Stool for C. difficile was collected. Patient subsequently was admitted to medical surgical floor for further management . CONSULTANTS: GI specialist Dr. Shearer [facility]SE: Patient admitted to medical surgical floor. Patient was kept on the IV fluids and empiric antibiotics. DVT and GI prophylaxis provided. Pain management was addressed as needed. Supportive care provided . Antiemetic provided as needed . Supplemental oxygen titrated to keep pulse oximetry above 92%. Blood sugar was managed with sliding scale of insulin. Leukocytosis resolved. No fevers. Patient improved symptomatically and wanted to go home. Patient was encouraged to stay at least until all the stool samples will be collected. GI specialist recommended that if symptoms continue to recur , follow-up with colonoscopy. At the time of this dictation , blood culture negative. Stool culture negative. Stool for C. difficile negative. Renal parameters and electrolytes were closely monitored, electrolytes corrected as needed , and nephrotoxins were avoided. Patient decided to leave AGAINST MEDICAL ADVICE. The risks and consequences of signing AGAINST MEDICAL ADVICE were discussed with patient in detail. Patient verbalized understanding, nevertheless signed AMA form and left. FINAL DIAGNOSES: Recurrent nausea , vomiting , and diarrhea Dehydration Possible colitis Diabetes mellitus I have been assigned to dictate discharge summary for this account. I was not involved in the patient's management. Sabra Crum NP Jul 18, 2019 16:27
== END 2019-07-16 09:55 | disposition left against medical advice (07) | DRG 392 ==
LOC: EMR 09:22 → 4E 12:33 → EDBEDREQ 12:57
DX: K52.9 Noninfective gastroenteritis and colitis, unspecified (principal); E11.9 Type 2 diabetes mellitus without complications; E86.0 Dehydration; K57.90 Diverticulosis of intestine, part unspecified, without perforation or abscess without bleeding
CPT/HCPCS: 36415; 74177; 80053; 81003; 82009; 82248; 82962; 83605; 83690; 85025; 87040; 87045; 87324; 96361; 96365; 96375; 99285; J1815; J2405; J7030